=== PATIENT | female | born 1965 | race Caucasian/White ===

== ENCOUNTER 2017-09-23 12:54 | Emergency (ER) | payer OTHER ==
[~2017-09-23] VITALS: Ht 162.6 cm; Wt 79.4 kg
[~2017-09-23 12:54] MED LIST: BACTRIM DS TAB1 EACH; BACTRIM DS TAB1 EACH PO; CEPHALEXIN 500500 M3 PO; FLEXERIL PO; GABAPENTIN 100100 MG PO; HYDROCODONE-AP1 EAC6 PO; IBUPROFEN 800800 M1 PO; LISINOPRIL20 MG PO; MEDROLDOSEPACK PO; NORCO 5-325 TA1 EACH PO; NORVASC5 MG PO; OMEPRAZOLE20 M1 PO; PENICILLIN V P500 MG PO; PERCOCET 5-3251 EACH PO; PERCOCET PO; PREDNISONE 10 M10 MG PO; PROAIR HFA8.5 GM; SPIRIVA INH; SYMBICORT160 MCG/4. INH; TRIAMCINOLONE A80 G2 TOP; VICODIN 5-3001 EACH PO; VISTARIL 25 MG25 M1 PO; ZOLOFT25 MG
[2017-09-23 13:33] LABS: URINE BILIRUBIN NEGATIVE (Negative); URINE BLOOD 1+ (Negative); URINE CLARITY CLEAR; URINE COLOR YELLOW; URINE GLUCOSE-RANDOM NEGATIVE (Negative); URINE KETONES NEGATIVE (Negative); URINE PROTEIN TRACE (Negative); URINE UROBILINOGEN 0.2 E.U./dl (0.2-1.0)
[2017-09-23 13:34] LABS: URINE LEUKOCYTES-REFLEX 3+ (Negative); URINE NITRITE-REFLEX POSITIVE (Negative)
[2017-09-23] MEDS ORDERED: BACTRIM DS TAB1 EACH PO (13:44)
[2017-09-23 13:53] LABS: SQUAMOUS 0-3 Few /LPF (0-3); URINE WBC-REFLEX >25 Many /HPF (0-5)
[2017-09-23 13:54] LABS: BACTERIA-REFLEX >30 Many /HPF (None Seen); CASTS None Seen /LPF (None Seen); CRYSTALS None Seen /LPF (None Seen); MUCUS None Seen strn/LPF (None Seen); URINE RBC >20 Many /HPF (0-2)
[2017-09-23 14:06] VITALS: BP 153/82
== END 2017-09-23 14:07 | disposition home or self-care (01) ==
LOC: M.ERS 12:54
PROVIDERS: Physician Assistant
DX: N39.0 Urinary tract infection, site not specified (principal); N89.8 Other specified noninflammatory disorders of vagina; Z20.2 Contact with and (suspected) exposure to infections with a predominantly sexual mode of transmission; J44.9 Chronic obstructive pulmonary disease, unspecified; I10 Essential (primary) hypertension; F41.9 Anxiety disorder, unspecified; F32.9 Major depressive disorder, single episode, unspecified; Z86.14 Personal history of Methicillin resistant Staphylococcus aureus infection; Z90.710 Acquired absence of both cervix and uterus; Z88.5 Allergy status to narcotic agent; Z88.8 Allergy status to other drugs, medicaments and biological substances

== ENCOUNTER 2017-10-23 00:47 | Emergency (ER) | payer OTHER ==
[~2017-10-23] VITALS: Ht 165.1 cm; Wt 79.4 kg
[2017-10-23 00:54] VITALS: BP 141/97
[2017-10-23] MEDS ORDERED: CIPROFLOXACIN500 M1 PO (01:04)
[2017-10-23] MEDS ORDERED: PYRIDIUM200 MG PO (01:04)
[2017-10-23 01:10] LABS: URINE BILIRUBIN NEGATIVE (Negative); URINE BLOOD TRACE (Negative); URINE CLARITY CLEAR; URINE COLOR YELLOW; URINE GLUCOSE-RANDOM NEGATIVE (Negative); URINE KETONES NEGATIVE (Negative); URINE LEUKOCYTES-REFLEX TRACE (Negative); URINE NITRITE-REFLEX NEGATIVE (Negative); URINE PROTEIN NEGATIVE (Negative); URINE SPECIFIC GRAVITY >= 1.030 (1.005-1.030); URINE UROBILINOGEN 0.2 E.U./dl (0.2-1.0)
[2017-10-23 01:25] LABS: CASTS None Seen /LPF (None Seen); MUCUS 0-3 Light strn/LPF (None Seen); SQUAMOUS >10 Many /LPF (0-3)
[2017-10-23 01:26] LABS: URINE WBC-REFLEX >25 Many /HPF (0-5)
[2017-10-23 01:27] LABS: BACTERIA-REFLEX 1-9 Few /HPF (None Seen); CRYSTALS None Seen /LPF (None Seen); URINE RBC 0-2 Rare /HPF (0-2)
== END 2017-10-23 01:08 | disposition home or self-care (01) ==
LOC: M.ERS 00:47
PROVIDERS: Family Medicine
DX: N39.0 Urinary tract infection, site not specified (principal); I10 Essential (primary) hypertension; J44.9 Chronic obstructive pulmonary disease, unspecified; F32.9 Major depressive disorder, single episode, unspecified; G89.29 Other chronic pain; M54.9 Dorsalgia, unspecified; Z88.8 Allergy status to other drugs, medicaments and biological substances; Z90.710 Acquired absence of both cervix and uterus; Z88.5 Allergy status to narcotic agent

== ENCOUNTER 2018-07-03 17:58 | Emergency (ER) | payer OTHER ==
[~2018-07-03] VITALS: Ht 165.1 cm; Wt 83.9 kg
[~2018-07-03 17:58] MED LIST changes: +CIPROFLOXACIN500 M1 PO; +PYRIDIUM200 MG PO
[2018-07-03 19:05] LABS: ABSOLUTE BASOPHILS 0.1 thou/uL (0.0-0.2); ABSOLUTE EOSINOPHILS 0.3 thou/uL (0.0-0.7); ABSOLUTE LYMPHOCYTES 1.9 thou/uL (0.8-5.3); ABSOLUTE MONOCYTES 0.5 thou/uL (0.0-1.2); ABSOLUTE NEUTROPHILS 4.6 thou/uL (1.6-8.1); BASOPHILS 0.7 %; EOSINOPHILS 4.2 %; HEMATOCRIT 42.5 % (37.0-47.0); HEMOGLOBIN 14.4 gm/dL (12.0-15.0); LYMPHOCYTES 25.4 %; MCH 29.3 pg (26.0-34.0); MCHC 33.9 g/dL (28.0-37.0); MCV 86.6 fL (80.0-100.0); MONOCYTES 6.9 %; MPV 9.5 fl. (7.2-11.1); NUCLEATED RBCS 0 /100WBC; PLATELET COUNT* 200 thou/uL (150-400); POLYS 62.8 %; RBC 4.91 mil/uL (4.20-5.00); WBC 7.3 thou/uL (4.0-11.0)
[2018-07-03 19:14] LABS: ANION GAP 7 mmol/L (7-16); BUN 23 mg/dL (7-18); CALCIUM 8.8 mg/dL (8.5-10.1); CHLORIDE 105 mmol/L (98-107); CO2 27 mmol/L (21-32); GLUCOSE 114 mg/dL (70-99); POTASSIUM 3.8 mmol/L (3.5-5.1); SODIUM 139 mmol/L (136-145)
[2018-07-03 19:21] LABS: ALBUMIN 3.3 g/dL (3.4-5.0); ALKALINE PHOSPHATASE 128 U/L (46-116); SGOT 22 U/L (15-37); SGPT 27 U/L (30-65); TOTAL BILIRUBIN 0.2 mg/dL (<0.1-1.0); TOTAL PROTEIN 6.7 g/dL (6.4-8.2); TROPONIN-I LEVEL <0.06 ng/mL (<0.06)
[2018-07-03] MEDS ORDERED: PROAIR HFA8.5 GM INH (19:46)
[2018-07-03] MEDS ORDERED: ALBUTEROL2.5 MG/31 INH (19:46)
[2018-07-03] MEDS ORDERED: PREDNISONE 20 M20 M1 PO (19:46)
[2018-07-03 20:02] VITALS: BP 141/71
--- NOTE | 2018-07-05 11:11 | EKG ---
[place] [address] ELECTROCARDIOGRAM REPORT Name: LUKE REDDY Room: [facility]#: [id number] Admission: 07/03/18 Attend Phys: Discharge: 07/03/18 Date of : 63 Report #: [id number] THIS REPORT FOR: //name// [facility] ED Test Date: 2018-07-03 Test Time: 18:07:50 Pat Name: LUKE REDDY Department: Room: Gender: F Textile Examiner: Ketan KHALIL : 1965 Requested By: Esther Phillips Order Number: [id number] MD: Avery Medrano Measurements Intervals [place] Rate: 94 P: 75 AL: 134 QRS: 71 QRSD: 83 T: 60 QT: 342 QTc: 428 Interpretive Statements Sinus rhythm Probable left atrial enlargement Compared to ECG 03/30/2015 13:39:30 Fusion complex(es) no longer present Ventricular premature complex(es) no longer present Electronically Signed On 07-05-2018 11:10:57 ALUMINUM SHINGLE ROOFER by Avery Medrano [email or web address] <ELECTRONICALLY SIGNED> By: Avery Medrano MD, FACC 07/05/18 1110 180 180 Avery Medrano MD, FAC /EPI
== END 2018-07-03 20:16 | disposition home or self-care (01) ==
LOC: M.ERS 17:58
PROVIDERS: Nurse Practitioner Family
DX: J20.9 Acute bronchitis, unspecified (principal); J44.9 Chronic obstructive pulmonary disease, unspecified; I10 Essential (primary) hypertension; F41.9 Anxiety disorder, unspecified; F32.9 Major depressive disorder, single episode, unspecified; G89.29 Other chronic pain; M54.9 Dorsalgia, unspecified; F17.210 Nicotine dependence, cigarettes, uncomplicated; Z88.6 Allergy status to analgesic agent; Z88.8 Allergy status to other drugs, medicaments and biological substances; Z86.14 Personal history of Methicillin resistant Staphylococcus aureus infection; Z90.710 Acquired absence of both cervix and uterus; Z89.011 Acquired absence of right thumb